=== PATIENT | male | born 1955 | race Caucasian/White ===

== ENCOUNTER 2022-04-07 16:16 | Inpatient (IN) | payer MEDICARE, OTHER ==
[~2022-04-07 16:16] MED LIST: Iopamidol-370 76% 500 ML MDV (1 ML CHARGE) ONE
[2022-04-07] MEDS ORDERED: Bisacodyl 5 MG TAB PO PRN (17:29)
[2022-04-07] MEDS ORDERED: Ondansetron ODT 4 MG TAB PO PRN (17:29)
[2022-04-07] MEDS ORDERED: Ondansetron PF 4 MG/2 ML Vial IVP PRN (17:29)
[2022-04-07] MEDS ORDERED: Mag-Al 1200 mg/1200 mg/30 ML UDCUP PO PRN (17:29)
[2022-04-07] MEDS ORDERED: Senokot S 8.6-50 MG TAB PO PRN (17:29)
[2022-04-07] MEDS ORDERED: niCARdipine 25 MG in Sodium Chloride 0.9% 250 ML 250 ML IVPB PRN (17:29)
[2022-04-07] MEDS ORDERED: hydrALAZINE 20 MG/ML VIAL SLOW IVP SCH (18:00)
[2022-04-07] MEDS ORDERED: Mannitol 12.5 GM/50 ML IV SCH (19:00)
[2022-04-07] MEDS: Sodium Chloride 0.9% 1,000 ML IV SCH (19:46)
[2022-04-07] MEDS: Famotidine/PF 20 mg/2ml Vial SLOW IVP SCH (21:57)
[2022-04-08 01:30] LABS: Sodium 136 mmol/L (136-145)
[2022-04-08] MEDS: Mannitol 12.5 GM/50 ML SLOW IVP SCH ×4 (01:47→19:48)
[2022-04-08] MEDS: Sodium Chloride 0.9% 1,000 ML IV SCH ×4 (05:06→23:23)
[2022-04-08 06:20] LABS: #Lymphocytes 0.7 thou/uL (1.20-3.40); #Monocytes 0.6 thou/uL (0.11-0.59); #Neutrophils 14.3 thou/uL (1.40-6.50); %Basophils 0.2 % (0.0-1.0); %Lymphocytes 4.6 % (21.0-51.0); %Monocytes 3.9 % (0.0-10.0); %Neutrophils 91.4 % (42.0-75.0); Hemoglobin 13.9 g/dL (14.0-18.0); Mean Corpuscular HGB CONC 33.1 g/dL (32.0-36.0); Mean Corpuscular Hemoglobin 32.5 pg (27.0-31.0); Mean Corpuscular Volume 98.3 fl (78.0-98.0); Platelet Count 183 10x3/uL (130-400); RBC Distribution Width 12.1 % (11.5-14.5); Red Blood Cell (RBC) Count 4.26 mill/uL (4.70-6.10); White Blood Cell (WBC) Count 15.6 10x3/uL (4.8-10.8)
[2022-04-08 07:46] LABS: Sodium 138 mmol/L (136-145)
[2022-04-08] MEDS: Famotidine/PF 20 mg/2ml Vial SLOW IVP SCH ×2 (08:57→20:12)
[2022-04-08 09:01] LABS: ALT (SGPT) 18 U/L (8-55); AST (SGOT) 16 U/L (5-34); Albumin 4.3 g/dL (3.4-4.8); Alkaline Phosphatase 48 U/L (40-110); Anion Gap 14 mmol/L (10-20); BUN (Urea Nitrogen) 16 mg/dL (8.4-25.7); Bilirubin, Total 0.7 mg/dL (0.2-1.2); Calc. Creatinine Clearance 92 mL/min (70-130); Calcium 8.9 mg/dL (7.8-10.44); Carbon Dioxide 21 mmol/L (23-31); Cardiac Risk 3.5 (Less than 4.5); Chloride 105 mmol/L (98-107); Cholesterol 149 mg/dl (< 200 Desired); Estimated GFR 96; Globulin 2.4 g/dL (2.4-3.5); Glucose 136 mg/dL (80-115); HDL Cholesterol 43 mg/dL (>60 Neg Risk); LDL Cholesterol, Calculated 96 mg/dL; Potassium 4.1 mmol/L (3.5-5.1); Protein, Total 6.7 g/dL (5.8-8.1); Sodium 136 mmol/L (136-145); Triglycerides 51 mg/dL (Less than 150)
[2022-04-08 13:13] LABS: Sodium 138 mmol/L (136-145)
[2022-04-08] MEDS ORDERED: Dexmedetomidine 200 MCG/2 ML VIAL ONE (15:26)
[2022-04-08] MEDS ORDERED: Fentanyl 250 MCG/5 ML VIAL ONE (15:26)
[2022-04-08] MEDS ORDERED: Mannitol 12.5 GM/50 ML IV SCH (15:30)
[2022-04-08] MEDS ORDERED: Thrombin 5000 UNITS/5 ML VIAL ONE (15:31)
[2022-04-08] MEDS ORDERED: ePHEDrine 50 MG/ML VIAL ONE (15:58)
[2022-04-08] MEDS ORDERED: PHENYLEPHRINE-NS 100 MCG/ML 10 ML SYRINGE ONE (15:58)
[2022-04-08] MEDS ORDERED: Rocuronium Bromide 10 MG/ML (10ML VIAL) ONE (15:58)
[2022-04-08] MEDS ORDERED: PROPOFOL 200 MG/20 ML VIAL ONE (15:58)
[2022-04-08] MEDS ORDERED: Ondansetron PF 4 MG/2 ML Vial ONE (15:58)
[2022-04-08] MEDS ORDERED: Bupivacaine/Epinephrine 0.25% 30 ML VIAL ONE (15:59)
[2022-04-08] MEDS ORDERED: Fosphenytoin Sodium 500 mg/10 ml Vial ONE ×2 (16:08→17:49)
[2022-04-08] MEDS ORDERED: SUGAMMADEX SODIUM 200 MG/2 ML VIAL ONE ×2 (16:49→16:54)
[2022-04-08] MEDS ORDERED: Bacitracin Zinc Ointment 30 gm TUBE ONE (16:54)
[2022-04-08 19:41] LABS: Sodium 137 mmol/L (136-145)
[2022-04-08] MEDS ORDERED: Fosphenytoin Sodium 100 mg/2 ml Vial IVPB SCH (21:00)
[2022-04-08] MEDS: Fosphenytoin Sodium 100 MG in Sodium Chloride 0.9% 50 ML IVPB SCH (21:12)
[2022-04-08] MEDS: CEFAZOLIN 2 GM in Sodium Chloride 0.9% 100 ML IVPB SCH (23:21)
[2022-04-09 04:10] LABS: #Monocytes 1.3 thou/uL (0.11-0.59); #Neutrophils 12.2 thou/uL (1.40-6.50); %Basophils 0.2 % (0.0-1.0); %Eosinophils 0.1 % (0.0-10.0); %Lymphocytes 7.1 % (21.0-51.0); %Monocytes 8.8 % (0.0-10.0); %Neutrophils 83.7 % (42.0-75.0); Hemoglobin 12.3 g/dL (14.0-18.0); Mean Corpuscular HGB CONC 33.1 g/dL (32.0-36.0); Mean Corpuscular Hemoglobin 32.5 pg (27.0-31.0); Mean Corpuscular Volume 98.1 fl (78.0-98.0); Mean Platelet Volume 8.4 fL (7.4-10.4); Platelet Count 159 10x3/uL (130-400); RBC Distribution Width 12.2 % (11.5-14.5); White Blood Cell (WBC) Count 14.5 10x3/uL (4.8-10.8)
[2022-04-09 04:53] LABS: Anion Gap 11 mmol/L (10-20); BUN (Urea Nitrogen) 16 mg/dL (8.4-25.7); Calc. Creatinine Clearance 105 mL/min (70-130); Calcium 8.3 mg/dL (7.8-10.44); Carbon Dioxide 22 mmol/L (23-31); Chloride 110 mmol/L (98-107); Estimated GFR 100; Glucose 146 mg/dL (80-115); Potassium 3.5 mmol/L (3.5-5.1); Sodium 139 mmol/L (136-145)
[2022-04-09 05:25] LABS: Sodium 139 mmol/L (136-145)
[2022-04-09] MEDS: CEFAZOLIN 2 GM in Sodium Chloride 0.9% 100 ML IVPB SCH ×2 (08:05→16:01)
[2022-04-09] MEDS: Famotidine/PF 20 mg/2ml Vial SLOW IVP SCH ×2 (08:05→21:07)
[2022-04-09] MEDS: Sodium Chloride 0.9% 1,000 ML IV SCH ×3 (09:43→23:27)
[2022-04-09] MEDS: Fosphenytoin Sodium 100 MG in Sodium Chloride 0.9% 50 ML IVPB SCH ×3 (09:57→21:09)
[2022-04-10] MEDS: CEFAZOLIN 2 GM in Sodium Chloride 0.9% 100 ML IVPB SCH ×2 (00:55→08:47)
[2022-04-10 05:29] LABS: Hemoglobin 12.4 g/dL (14.0-18.0); Mean Corpuscular HGB CONC 33.4 g/dL (32.0-36.0); Mean Corpuscular Hemoglobin 32.9 pg (27.0-31.0); Mean Corpuscular Volume 98.4 fl (78.0-98.0); Red Blood Cell (RBC) Count 3.77 mill/uL (4.70-6.10); White Blood Cell (WBC) Count 10.1 10x3/uL (4.8-10.8)
[2022-04-10 05:35] LABS: Anion Gap 12 mmol/L (10-20); BUN (Urea Nitrogen) 21 mg/dL (8.4-25.7); Calc. Creatinine Clearance 113 mL/min (70-130); Calcium 8.2 mg/dL (7.8-10.44); Carbon Dioxide 21 mmol/L (23-31); Chloride 111 mmol/L (98-107); Estimated GFR 102; Glucose 128 mg/dL (80-115); Potassium 3.5 mmol/L (3.5-5.1); Sodium 140 mmol/L (136-145)
[2022-04-10] MEDS: Sodium Chloride 0.9% 1,000 ML IV SCH ×5 (06:02→20:44)
[2022-04-10 06:05] LABS: #Lymphocytes 0.8 thou/uL (1.20-3.40); #Monocytes 0.6 thou/uL (0.11-0.59); #Neutrophils 8.7 thou/uL (1.40-6.50); %Basophils 0.1 % (0.0-1.0); %Eosinophils 0.1 % (0.0-10.0); %Lymphocytes 7.4 % (21.0-51.0); %Monocytes 6.2 % (0.0-10.0); %Neutrophils 86.1 % (42.0-75.0); Mean Platelet Volume 8.7 fL (7.4-10.4); Platelet Count 119 10x3/uL (130-400); Platelet Morphology Comment Appears Decreased
[2022-04-10] MEDS: Famotidine/PF 20 mg/2ml Vial SLOW IVP SCH ×2 (08:47→20:47)
[2022-04-10] MEDS: Fosphenytoin Sodium 100 MG in Sodium Chloride 0.9% 50 ML IVPB SCH ×3 (09:49→21:15)
[2022-04-10] MEDS: Acetaminophen 325 MG TAB PO PRN (16:40)
[2022-04-11 04:34] LABS: #Lymphocytes 0.9 thou/uL (1.20-3.40); #Monocytes 0.7 thou/uL (0.11-0.59); #Neutrophils 6.4 thou/uL (1.40-6.50); %Basophils 0.2 % (0.0-1.0); %Eosinophils 0.2 % (0.0-10.0); %Lymphocytes 10.8 % (21.0-51.0); %Monocytes 9.2 % (0.0-10.0); %Neutrophils 79.7 % (42.0-75.0); Band 8 % (5-11); Hemoglobin 12.1 g/dL (14.0-18.0); Hypochromia SLIGHT = 6-15 cells (100X) (0-5/hpf); Lymphocytes 12 % (21-51); MDiff Complete? YES; Mean Corpuscular HGB CONC 33.5 g/dL (32.0-36.0); Mean Corpuscular Hemoglobin 33.3 pg (27.0-31.0); Mean Corpuscular Volume 99.4 fl (78.0-98.0); Mean Platelet Volume 8.1 fL (7.4-10.4); Monocytes 7 % (0-10); Neutrophil 70 % (42-75); Platelet Count 97 10x3/uL (130-400); Platelet Morphology Comment Appears Decreased; RBC Distribution Width 11.9 % (11.5-14.5); Reactive Lymphocytes 3 % (0-10); Red Blood Cell (RBC) Count 3.62 mill/uL (4.70-6.10)
[2022-04-11] MEDS: Fosphenytoin Sodium 100 MG in Sodium Chloride 0.9% 50 ML IVPB SCH ×3 (09:41→21:02)
[2022-04-11] MEDS: Famotidine/PF 20 mg/2ml Vial SLOW IVP SCH ×2 (09:41→21:02)
[2022-04-11] MEDS: Acetaminophen 325 MG TAB PO PRN ×2 (11:00→17:50)
[2022-04-11] MEDS ORDERED: Dexamethasone 10 MG/ML VIAL SLOW IVP SCH (12:00)
[2022-04-11] MEDS ORDERED: Ipratropium/Albuterol 3 ML NEB NEB SCH (12:00)
[2022-04-11 12:01] LABS: Lactic Acid 1.9 mmol/L (0.5-2.2)
[2022-04-11] MEDS ORDERED: Lidocaine 1% (PF) 30 ML VIAL ONE (12:04)
[2022-04-11] MEDS: cefTRIAXone\\ROCEPHIN 1 GM in Sodium Chloride 0.9% 100 ML IVPB SCH (12:15)
[2022-04-11] MEDS ORDERED: Iopamidol 370 76% 100 ML VIAL ONE (13:35)
[2022-04-12 04:15] LABS: Hemoglobin 11.6 g/dL (14.0-18.0); Mean Corpuscular HGB CONC 33.7 g/dL (32.0-36.0); Mean Corpuscular Hemoglobin 33.5 pg (27.0-31.0); Mean Corpuscular Volume 99.4 fl (78.0-98.0); Mean Platelet Volume 8.4 fL (7.4-10.4); Platelet Count 132 10x3/uL (130-400); RBC Distribution Width 11.8 % (11.5-14.5); Red Blood Cell (RBC) Count 3.46 mill/uL (4.70-6.10); White Blood Cell (WBC) Count 8.4 10x3/uL (4.8-10.8)
[2022-04-12 04:36] LABS: Anion Gap 11 mmol/L (10-20); BUN (Urea Nitrogen) 26 mg/dL (8.4-25.7); Calc. Creatinine Clearance 121 mL/min (70-130); Calcium 7.9 mg/dL (7.8-10.44); Carbon Dioxide 23 mmol/L (23-31); Chloride 113 mmol/L (98-107); Estimated GFR 103; Fibrinogen 520 mg/dL (253-463); Glucose 113 mg/dL (80-115); Potassium 3.2 mmol/L (3.5-5.1); Sodium 144 mmol/L (136-145)
[2022-04-12 04:37] LABS: INR-International Normal Ratio 1.2; PTT 28.8 sec (22.9-36.1); Prothrombin Time 15.3 sec (12.0-14.7)
[2022-04-12 04:51] LABS: Band 3 % (5-11); Eosinophils 1 % (0-10); Lymphocytes 10 % (21-51); MDiff Complete? YES; Monocytes 5 % (0-10); Neutrophil 81 % (42-75); Platelet Morphology Comment Appears Adequate; Polychromasia SLIGHT = 2-3 cells (100X) (0-2/hpf)
[2022-04-12 04:53] LABS: D-Dimer Test Greater than 20.00 *mcg/mL (0.27-0.43)
[2022-04-12 04:54] LABS: Platelet Count 132 10x3/uL (130-400)
[2022-04-12] MEDS: Fosphenytoin Sodium 100 MG in Sodium Chloride 0.9% 50 ML IVPB SCH ×3 (08:14→20:10)
[2022-04-12] MEDS: Acetaminophen 325 MG TAB PO PRN (08:14)
[2022-04-12] MEDS: Famotidine/PF 20 mg/2ml Vial SLOW IVP SCH ×2 (08:14→20:10)
[2022-04-12] MEDS: cefTRIAXone\\ROCEPHIN 1 GM in Sodium Chloride 0.9% 100 ML IVPB SCH (12:44)
[2022-04-13 04:13] LABS: Band 18 % (5-11); Lymphocytes 7 % (21-51); MDiff Complete? YES; Mean Corpuscular HGB CONC 33.7 g/dL (32.0-36.0); Mean Corpuscular Hemoglobin 32.9 pg (27.0-31.0); Mean Corpuscular Volume 97.8 fl (78.0-98.0); Mean Platelet Volume 8.7 fL (7.4-10.4); Monocytes 6 % (0-10); Neutrophil 69 % (42-75); Platelet Count 108 10x3/uL (130-400); Platelet Morphology Comment Appears Decreased; Polychromasia SLIGHT = 2-3 cells (100X) (0-2/hpf); Red Blood Cell (RBC) Count 3.64 mill/uL (4.70-6.10); White Blood Cell (WBC) Count 9.8 10x3/uL (4.8-10.8)
[2022-04-13] MEDS: Acetaminophen 325 MG TAB PO PRN (09:09)
[2022-04-13] MEDS: Fosphenytoin Sodium 100 MG in Sodium Chloride 0.9% 50 ML IVPB SCH ×3 (09:10→21:13)
[2022-04-13] MEDS: Famotidine/PF 20 mg/2ml Vial SLOW IVP SCH ×2 (09:10→21:11)
[2022-04-13] MEDS: cefTRIAXone\\ROCEPHIN 1 GM in Sodium Chloride 0.9% 100 ML IVPB SCH (12:09)
[2022-04-13] MEDS: Labetalol HCl 100 MG/20 ML VIAL SLOW IVP PRN (21:10)
[2022-04-13] MEDS: Morphine 2 MG/ML VIAL SLOW IVP PRN (21:11)
[2022-04-14 07:06] LABS: #Eosinphils 0.3 thou/uL (0.0-0.7); #Lymphocytes 1.1 thou/uL (1.20-3.40); #Monocytes 1.2 thou/uL (0.11-0.59); #Neutrophils 9.3 thou/uL (1.40-6.50); %Basophils 0.1 % (0.0-1.0); %Eosinophils 2.3 % (0.0-10.0); %Lymphocytes 9.6 % (21.0-51.0); %Monocytes 9.9 % (0.0-10.0); %Neutrophils 78.1 % (42.0-75.0); Hemoglobin 12.9 g/dL (14.0-18.0); Mean Corpuscular HGB CONC 32.5 g/dL (32.0-36.0); Mean Corpuscular Volume 98.4 fl (78.0-98.0); Mean Platelet Volume 8.7 fL (7.4-10.4); Platelet Count 110 10x3/uL (130-400); RBC Distribution Width 12.2 % (11.5-14.5); Red Blood Cell (RBC) Count 4.04 mill/uL (4.70-6.10); White Blood Cell (WBC) Count 11.9 10x3/uL (4.8-10.8)
[2022-04-14] MEDS: Morphine 2 MG/ML VIAL SLOW IVP PRN ×2 (08:23→20:58)
[2022-04-14] MEDS: Famotidine/PF 20 mg/2ml Vial SLOW IVP SCH ×2 (08:24→20:58)
[2022-04-14] MEDS: Fosphenytoin Sodium 100 MG in Sodium Chloride 0.9% 50 ML IVPB SCH ×3 (08:24→20:58)
[2022-04-14 08:33] LABS: Anion Gap 13 mmol/L (10-20); BUN (Urea Nitrogen) 27 mg/dL (8.4-25.7); Calc. Creatinine Clearance 124 mL/min (70-130); Carbon Dioxide 20 mmol/L (23-31); Chloride 113 mmol/L (98-107); Estimated GFR 106; Glucose 128 mg/dL (80-115); Potassium 3.6 mmol/L (3.5-5.1); Sodium 142 mmol/L (136-145)
[2022-04-14] MEDS: cefTRIAXone\\ROCEPHIN 1 GM in Sodium Chloride 0.9% 100 ML IVPB SCH (11:40)
[2022-04-14] MEDS: Labetalol HCl 100 MG/20 ML VIAL SLOW IVP PRN ×2 (11:41→20:57)
[2022-04-14] MEDS ORDERED: Ipratropium/Albuterol 3 ML NEB NEB PRN (16:18)
[2022-04-14] MEDS ORDERED: guaiFENesin ER 600 MG TAB PO SCH ×2 (16:30→21:00)
[2022-04-14] MEDS ORDERED: GUAIFENESIN SF SOLN 200 MG/10 ML UDCUP PO PRN (17:08)
[2022-04-15 07:02] LABS: Mean Corpuscular HGB CONC 32.2 g/dL (32.0-36.0); Mean Corpuscular Hemoglobin 31.7 pg (27.0-31.0); Mean Corpuscular Volume 98.5 fl (78.0-98.0); Mean Platelet Volume 9.2 fL (7.4-10.4); Platelet Count 124 10x3/uL (130-400); RBC Distribution Width 12.8 % (11.5-14.5); Red Blood Cell (RBC) Count 4.09 mill/uL (4.70-6.10); White Blood Cell (WBC) Count 13.3 10x3/uL (4.8-10.8)
[2022-04-15 08:16] LABS: Band 16 % (5-11); Eosinophils 1 % (0-10); Lymphocytes 7 % (21-51); MDiff Complete? YES; Monocytes 9 % (0-10); Neutrophil 67 % (42-75); Platelet Morphology Comment Appears Decreased; Polychromasia SLIGHT = 2-3 cells (100X) (0-2/hpf)
[2022-04-15] MEDS: Fosphenytoin Sodium 100 MG in Sodium Chloride 0.9% 50 ML IVPB SCH ×3 (08:31→21:05)
[2022-04-15] MEDS: Famotidine/PF 20 mg/2ml Vial SLOW IVP SCH ×2 (08:31→21:05)
[2022-04-15] MEDS: cefTRIAXone\\ROCEPHIN 1 GM in Sodium Chloride 0.9% 100 ML IVPB SCH (10:41)
[2022-04-16 06:25] LABS: #Eosinphils 0.2 thou/uL (0.0-0.7); #Lymphocytes 1.9 thou/uL (1.20-3.40); #Monocytes 1.5 thou/uL (0.11-0.59); #Neutrophils 10.7 thou/uL (1.40-6.50); %Basophils 0.3 % (0.0-1.0); %Eosinophils 1.5 % (0.0-10.0); %Lymphocytes 12.9 % (21.0-51.0); %Monocytes 10.2 % (0.0-10.0); Hemoglobin 13.2 g/dL (14.0-18.0); Mean Corpuscular HGB CONC 33.3 g/dL (32.0-36.0); Mean Corpuscular Hemoglobin 32.9 pg (27.0-31.0); Mean Corpuscular Volume 98.8 fl (78.0-98.0); Mean Platelet Volume 8.6 fL (7.4-10.4); Platelet Count 150 10x3/uL (130-400); RBC Distribution Width 12.6 % (11.5-14.5); Red Blood Cell (RBC) Count 4.02 mill/uL (4.70-6.10); White Blood Cell (WBC) Count 14.3 10x3/uL (4.8-10.8)
[2022-04-16] MEDS: Famotidine/PF 20 mg/2ml Vial SLOW IVP SCH ×2 (07:50→20:55)
[2022-04-16] MEDS: Fosphenytoin Sodium 100 MG in Sodium Chloride 0.9% 50 ML IVPB SCH ×3 (07:50→20:56)
[2022-04-16] MEDS: cefTRIAXone\\ROCEPHIN 1 GM in Sodium Chloride 0.9% 100 ML IVPB SCH (11:05)
[2022-04-16] MEDS ORDERED: Mannitol 12.5 GM/50 ML SLOW IVP SCH (15:45)
[2022-04-16] MEDS ORDERED: Sodium Chloride 0.9% 1,000 ML IV SCH (16:00)
[2022-04-16] MEDS ORDERED: MANNITOL 20% IVPB SCH ×2 (16:15)
[2022-04-16] MEDS ORDERED: Electrolyte Replacement Protocol 1 EACH FS SCH (22:30)
[2022-04-17 04:29] LABS: Anion Gap 15 mmol/L (10-20); BUN (Urea Nitrogen) 30 mg/dL (8.4-25.7); Calc. Creatinine Clearance 121 mL/min (70-130); Calcium 8.2 mg/dL (7.8-10.44); Carbon Dioxide 19 mmol/L (23-31); Chloride 112 mmol/L (98-107); Estimated GFR 105; Glucose 120 mg/dL (80-115); Magnesium 2.3 mg/dL (1.6-2.6); Potassium 3.9 mmol/L (3.5-5.1); Sodium 142 mmol/L (136-145)
[2022-04-17] MEDS ORDERED: Mannitol 12.5 GM/50 ML SLOW IVP SCH (05:00)
[2022-04-17] MEDS ORDERED: MANNITOL 20% IVPB SCH (05:00)
[2022-04-17] MEDS: Famotidine/PF 20 mg/2ml Vial SLOW IVP SCH ×2 (08:37→21:50)
[2022-04-17] MEDS: Fosphenytoin Sodium 100 MG in Sodium Chloride 0.9% 50 ML IVPB SCH ×3 (08:37→21:56)
[2022-04-17] MEDS: Sodium Chloride 0.9% 1,000 ML IV SCH ×2 (09:56→19:30)
[2022-04-17] MEDS: cefTRIAXone\\ROCEPHIN 1 GM in Sodium Chloride 0.9% 100 ML IVPB SCH (11:43)
[2022-04-17 16:39] LABS: Anion Gap 10 mmol/L (10-20); BUN (Urea Nitrogen) 32 mg/dL (8.4-25.7); Calc. Creatinine Clearance 112 mL/min (70-130); Calcium 7.8 mg/dL (7.8-10.44); Carbon Dioxide 21 mmol/L (23-31); Chloride 114 mmol/L (98-107); Estimated GFR 103; Glucose 130 mg/dL (80-115); Potassium 3.8 mmol/L (3.5-5.1); Sodium 141 mmol/L (136-145)
[2022-04-17] MEDS: ADMIXTURE FEE IVPB SCH (16:43)
[2022-04-17] MEDS: IN MANNITOL IVPB SCH (16:43)
[2022-04-18 05:30] LABS: Anion Gap 13 mmol/L (10-20); BUN (Urea Nitrogen) 33 mg/dL (8.4-25.7); Calc. Creatinine Clearance 108 mL/min (70-130); Calcium 7.8 mg/dL (7.8-10.44); Carbon Dioxide 17 mmol/L (23-31); Chloride 114 mmol/L (98-107); Estimated GFR 103; Glucose 129 mg/dL (80-115); Potassium 3.8 mmol/L (3.5-5.1); Sodium 140 mmol/L (136-145)
[2022-04-18] MEDS: IN MANNITOL IVPB SCH ×2 (05:36→17:25)
[2022-04-18] MEDS: ADMIXTURE FEE IVPB SCH ×2 (05:36→17:25)
[2022-04-18 08:51] LABS: #Eosinphils 0.2 thou/uL (0.0-0.7); #Lymphocytes 1.5 thou/uL (1.20-3.40); #Neutrophils 12.5 thou/uL (1.40-6.50); %Basophils 0.2 % (0.0-1.0); %Eosinophils 1.5 % (0.0-10.0); %Lymphocytes 9.9 % (21.0-51.0); %Monocytes 6.6 % (0.0-10.0); %Neutrophils 81.7 % (42.0-75.0); Hemoglobin 12.3 g/dL (14.0-18.0); Mean Corpuscular HGB CONC 32.2 g/dL (32.0-36.0); Mean Corpuscular Hemoglobin 32.1 pg (27.0-31.0); Mean Corpuscular Volume 99.8 fl (78.0-98.0); Mean Platelet Volume 8.3 fL (7.4-10.4); Platelet Count 133 10x3/uL (130-400); RBC Distribution Width 12.9 % (11.5-14.5); Red Blood Cell (RBC) Count 3.81 mill/uL (4.70-6.10); White Blood Cell (WBC) Count 15.4 10x3/uL (4.8-10.8)
[2022-04-18] MEDS: Sodium Chloride 0.9% 1,000 ML IV SCH (09:21)
[2022-04-18] MEDS: Famotidine/PF 20 mg/2ml Vial SLOW IVP SCH ×2 (09:22→21:05)
[2022-04-18] MEDS ORDERED: MANNITOL 20% IVPB SCH ×2 (09:45→17:00)
[2022-04-18] MEDS: Fosphenytoin Sodium 100 MG in Sodium Chloride 0.9% 50 ML IVPB SCH ×3 (09:57→21:06)
[2022-04-18] MEDS: cefTRIAXone\\ROCEPHIN 1 GM in Sodium Chloride 0.9% 100 ML IVPB SCH (11:51)
[2022-04-18 12:57] VITALS: BMI 24.1
[2022-04-18 16:21] LABS: Anion Gap 13 mmol/L (10-20); BUN (Urea Nitrogen) 32 mg/dL (8.4-25.7); Calc. Creatinine Clearance 109 mL/min (70-130); Calcium 7.8 mg/dL (7.8-10.44); Carbon Dioxide 21 mmol/L (23-31); Chloride 113 mmol/L (98-107); Estimated GFR 103; Glucose 125 mg/dL (80-115); Potassium 4.1 mmol/L (3.5-5.1); Sodium 143 mmol/L (136-145)
[2022-04-19] MEDS: ACETYLCYSTEINE INH SCH ×2 (01:38→07:18)
[2022-04-19] MEDS: Ipratropium/Albuterol 3 ML NEB EZPAP SCH ×6 (01:52→21:25)
[2022-04-19] MEDS: Morphine 2 MG/ML VIAL SLOW IVP PRN (02:46)
[2022-04-19] MEDS: Sodium Chloride 0.9% 1,000 ML IV SCH ×2 (02:48→18:21)
[2022-04-19] MEDS ORDERED: Morphine 4 MG/ML VIAL SLOW IVP PRN (04:19)
[2022-04-19 04:22] LABS: #Eosinphils 0.2 thou/uL (0.0-0.7); #Lymphocytes 1.6 thou/uL (1.20-3.40); #Monocytes 0.9 thou/uL (0.11-0.59); #Neutrophils 12.6 thou/uL (1.40-6.50); %Basophils 0.1 % (0.0-1.0); %Lymphocytes 10.7 % (21.0-51.0); %Monocytes 6.1 % (0.0-10.0); %Neutrophils 82.2 % (42.0-75.0); Hemoglobin 12.6 g/dL (14.0-18.0); Mean Corpuscular HGB CONC 32.2 g/dL (32.0-36.0); Mean Corpuscular Hemoglobin 32.1 pg (27.0-31.0); Mean Corpuscular Volume 99.5 fl (78.0-98.0); Mean Platelet Volume 8.3 fL (7.4-10.4); Platelet Count 124 10x3/uL (130-400); RBC Distribution Width 12.7 % (11.5-14.5); Red Blood Cell (RBC) Count 3.92 mill/uL (4.70-6.10); White Blood Cell (WBC) Count 15.3 10x3/uL (4.8-10.8)
[2022-04-19 04:42] LABS: Anion Gap 13 mmol/L (10-20); BUN (Urea Nitrogen) 30 mg/dL (8.4-25.7); Calc. Creatinine Clearance 115 mL/min (70-130); Calcium 8.2 mg/dL (7.8-10.44); Carbon Dioxide 20 mmol/L (23-31); Chloride 113 mmol/L (98-107); Estimated GFR 105; Glucose 116 mg/dL (80-115); Potassium 4.1 mmol/L (3.5-5.1); Sodium 142 mmol/L (136-145)
[2022-04-19] MEDS: IN MANNITOL IVPB SCH ×2 (05:09→17:04)
[2022-04-19] MEDS: ADMIXTURE FEE IVPB SCH ×2 (05:09→17:04)
[2022-04-19] MEDS: Fosphenytoin Sodium 100 MG in Sodium Chloride 0.9% 50 ML IVPB SCH ×3 (08:54→21:11)
[2022-04-19] MEDS: Famotidine/PF 20 mg/2ml Vial SLOW IVP SCH ×2 (08:58→21:11)
[2022-04-19] MEDS: Morphine 4 MG/ML VIAL SLOW IVP SCH ×2 (10:13→11:06)
[2022-04-19] MEDS ORDERED: Ketamine 50 MG/ML (10ML VIAL) ONE (10:37)
[2022-04-19] MEDS: cefTRIAXone\\ROCEPHIN 1 GM in Sodium Chloride 0.9% 100 ML IVPB SCH (11:12)
[2022-04-19] MEDS ORDERED: Morphine 4 MG/ML VIAL ONE (11:14)
[2022-04-19] MEDS: Morphine 10 MG/ML VIAL SLOW IVP PRN (11:20)
[2022-04-19 16:54] LABS: Anion Gap 13 mmol/L (10-20); BUN (Urea Nitrogen) 28 mg/dL (8.4-25.7); Calc. Creatinine Clearance 103 mL/min (70-130); Calcium 8.2 mg/dL (7.8-10.44); Carbon Dioxide 21 mmol/L (23-31); Chloride 111 mmol/L (98-107); Estimated GFR 101; Glucose 141 mg/dL (80-115); Sodium 141 mmol/L (136-145)
[2022-04-20] MEDS: Morphine 10 MG/ML VIAL SLOW IVP PRN ×4 (00:18→22:14)
[2022-04-20] MEDS: Ipratropium/Albuterol 3 ML NEB EZPAP SCH ×4 (01:49→14:00)
[2022-04-20] MEDS: Morphine 4 MG/ML VIAL SLOW IVP SCH ×3 (01:57→07:34)
[2022-04-20 08:09] LABS: #Eosinphils 0.1 thou/uL (0.0-0.7); #Lymphocytes 1.4 thou/uL (1.20-3.40); #Neutrophils 15.2 thou/uL (1.40-6.50); %Basophils 0.2 % (0.0-1.0); %Eosinophils 0.4 % (0.0-10.0); %Lymphocytes 7.8 % (21.0-51.0); %Monocytes 5.7 % (0.0-10.0); Hemoglobin 14.6 g/dL (14.0-18.0); Mean Corpuscular HGB CONC 30.8 g/dL (32.0-36.0); Mean Platelet Volume 9.1 fL (7.4-10.4); Platelet Count 84 10x3/uL (130-400); RBC Distribution Width 12.9 % (11.5-14.5); Red Blood Cell (RBC) Count 4.54 mill/uL (4.70-6.10); White Blood Cell (WBC) Count 17.7 10x3/uL (4.8-10.8)
[2022-04-20 08:37] LABS: Anion Gap 17 mmol/L (10-20); BUN (Urea Nitrogen) 23 mg/dL (8.4-25.7); Calc. Creatinine Clearance 84 mL/min (70-130); Calcium 9.1 mg/dL (7.8-10.44); Carbon Dioxide 21 mmol/L (23-31); Chloride 125 mmol/L (98-107); Estimated GFR 95; Glucose 127 mg/dL (80-115); Potassium 4.4 mmol/L (3.5-5.1)
[2022-04-20 08:44] LABS: Sodium 159 mmol/L (136-145)
[2022-04-20] MEDS: Sodium Chloride 0.9% 1,000 ML IV SCH (10:18)
[2022-04-20] MEDS: ADMIXTURE FEE IVPB SCH (10:19)
[2022-04-20] MEDS: IN MANNITOL IVPB SCH (10:19)
[2022-04-20] MEDS: Famotidine/PF 20 mg/2ml Vial SLOW IVP SCH (10:20)
[2022-04-20] MEDS: Fosphenytoin Sodium 100 MG in Sodium Chloride 0.9% 50 ML IVPB SCH (12:08)
[2022-04-20] MEDS: cefTRIAXone\\ROCEPHIN 1 GM in Sodium Chloride 0.9% 100 ML IVPB SCH (12:09)
[2022-04-20] MEDS ORDERED: Sodium Chloride 0.9% 1,000 ML IV SCH (14:45)
[2022-04-20] MEDS ORDERED: Acetaminophen 325 MG Suppository PR PRN (14:51)
[2022-04-20] MEDS ORDERED: Meropenem 1 GM in Sodium Chloride 0.9% 100 ML IVPB SCH ×2 (16:45→22:00)
[2022-04-20] MEDS ORDERED: Lorazepam 2 MG/ML VIAL SLOW IVP PRN (23:54)
[2022-04-21] MEDS ORDERED: Meropenem 1 GM in Sodium Chloride 0.9% 100 ML IVPB SCH (01:00)
[2022-04-21 02:47] VITALS: BP 72/52; TEMP 98.8
== END 2022-04-21 00:41 | disposition expired | DRG 23 ==
LOC: IMCU/EMU 17:14 → CCU 04-08 18:18 → SURG B 04-13 11:45 → CCU 04-16 18:35 → IMCU/EMU 04-20 11:35 → T4-A 04-20 20:01
PROVIDERS: ADMIT Internal Medicine; ATTEND Internal Medicine
PROC: 009300Z Drainage of Intracranial Epidural Space with Drainage Device, Open Approach (ICD-10-PCS; principal; 2022-04-08)
PROC: 0DH67UZ Insertion of Feeding Device into Stomach, Via Natural or Artificial Opening (ICD-10-PCS; 2022-04-10)
PROC: 06H03DZ Insertion of Intraluminal Device into Inferior Vena Cava, Percutaneous Approach (ICD-10-PCS; 2022-04-11)
PROC: B5191ZZ Fluoroscopy of Inferior Vena Cava using Low Osmolar Contrast (ICD-10-PCS; 2022-04-11)
PROC: 30233N1 Transfusion of Nonautologous Red Blood Cells into Peripheral Vein, Percutaneous Approach (ICD-10-PCS; 2022-04-11)
PROC: 6A550Z2 Pheresis of Platelets, Single (ICD-10-PCS; 2022-04-11)
DX: I61.1 Nontraumatic intracerebral hemorrhage in hemisphere, cortical (principal); Z66 Do not resuscitate; Z51.5 Encounter for palliative care; Z20.822 Contact with and (suspected) exposure to COVID-19; G93.5 Compression of brain; G93.6 Cerebral edema; J69.0 Pneumonitis due to inhalation of food and vomit; R47.01 Aphasia; G81.94 Hemiplegia, unspecified affecting left nondominant side; R41.4 Neurologic neglect syndrome; I82.4Z1 Acute embolism and thrombosis of unspecified deep veins of right distal lower extremity; E23.2 Diabetes insipidus; F39 Unspecified mood [affective] disorder; E78.5 Hyperlipidemia, unspecified; I10 Essential (primary) hypertension; H53.2 Diplopia; R13.12 Dysphagia, oropharyngeal phase; D50.9 Iron deficiency anemia, unspecified; D75.839 Thrombocytosis, unspecified; Z79.899 Other long term (current) drug therapy; Z78.1 Physical restraint status
CPT/HCPCS: 36415; 36416; 36430; 37191; 70450; 70496; 71045; 71250; 74018; 80048; 80053; 80061; 82040; 83036; 83605; 83735; 83930; 84100; 84145; 85025; 85049; 85300; 85362; 85379; 85384; 85610; 85730; 86850; 86900; 86901; 93306; 93970; 94640; 95816; 95819; 95957; C1713; C1769; C1789; C1880; C1894; J0696; J1100; J1165; J2001; J2150; J2270; J2272; J2405; J2704; J3010; J3490; J7050; J7608; J7620; J7799; P9035; Q2009; Q9967; S0028